=== PATIENT | female | born 1995 | race Caucasian/White ===

== ENCOUNTER → 2017-02-04 | Outpatient (CLI) | payer OTHER | END | disposition home or self-care (01) | LOC: GMA 20:13 | PROVIDERS: ATTEND Nurse Practitioner Family | DX: N30.00 Acute cystitis without hematuria (principal) ==

== ENCOUNTER → 2017-10-15 | Outpatient (CLI) | payer OTHER | LOC: GMAJS 15:49 | PROVIDERS: ATTEND Physician Assistant | DX: Z20.2 Contact with and (suspected) exposure to infections with a predominantly sexual mode of transmission (principal); Z72.51 High risk heterosexual behavior ==

== ENCOUNTER → 2019-02-10 | Outpatient (CLI) | payer OTHER | LOC: GMAM 13:55 | PROVIDERS: ATTEND Family Medicine | DX: R10.2 Pelvic and perineal pain (principal); N39.0 Urinary tract infection, site not specified ==

== ENCOUNTER → 2019-02-12 | Outpatient (CLI) | payer OTHER ==
--- NOTE | 2019-02-12 11:39 | CT ---
EXAM DESCRIPTION: Abdoment/Pelvis w/o Contrast CLINICAL HISTORY: 23 years, Female, PELVIC PN, FEMALE COMPARISON: None. TECHNIQUE: CT of the abdomen and pelvis is performed according to our non contrast protocol. FINDINGS: The lung bases are clear. Liver, spleen, and pancreas are unremarkable. Adrenal glands appear normal. The right kidney is unremarkable. The left kidney is unremarkable. No renal stones or hydronephrosis. Small bowel loops appear normal in caliber with normal wall thickness. There is no lymphadenopathy, inflammation, or free fluid observed. In the pelvis, the appendix is normal. No inflammation around the cecum or terminal ileum or sigmoid colon. No stones in the distal ureters or bladder. Rectal wall thickness is normal for degree of distention. No free fluid or mass in the pelvis. Uterus appears normal. No ovarian enlargement. No inguinal or lower pelvic adenopathy. Coronal and sagittal reformatted images confirm the findings. IMPRESSION: No diagnostic abnormality. This exam was performed according to our departmental dose-optimization program, which includes automated exposure control, adjustment of the mA and/or kV according to patient size and/or use of iterative reconstruction technique. Total DLP equals 251.66 mGycm. Electronically signed by: Shun Ordoñez MD 02/12/2019 11:36 AM CDT
== END ==
LOC: CT 08:02
PROVIDERS: ATTEND Family Medicine
DX: R10.2 Pelvic and perineal pain (principal)

== ENCOUNTER → 2019-02-15 | Outpatient (CLI) | payer OTHER | LOC: GMAM 16:43 | PROVIDERS: ATTEND Family Medicine | DX: R63.4 Abnormal weight loss (principal) ==

== ENCOUNTER → 2019-12-23 | Outpatient (CLI) | payer OTHER | LOC: GMAM 16:30 | PROVIDERS: ATTEND Family Medicine | DX: R53.83 Other fatigue (principal); F34.1 Dysthymic disorder ==

== ENCOUNTER 2020-01-04 00:15 | Emergency (ER) | payer OTHER ==
[2020-01-04] MEDS ORDERED: diphenhydrAMINE HCL 50 MG/ML VIAL IV ONE (00:27)
[2020-01-04] MEDS ORDERED: SODIUM CHLORIDE 0.9% 1000ML 1,000 ML IVS ONE (00:30)
[2020-01-04 00:33] VITALS: TEMP 97.2
--- NOTE | 2020-01-04 00:33 | ED.PDOC ---
History of Present Illness - General Chief Complaint: Allergic Reaction Stated Complaint: muscle stiffness, drooling Time Seen by Provider: 01/04/20 00:21 - History of Present Illness Initial Comments: 24 yo F PMH Anxiety Depression (Denies hallucinations SI HI without suicide plan) presents to the ED Mother at bedside sister also a patient in the ED for migraines presents to the ED c/o 'reaction to psych medication' Describes feeling jittery and having uncontrolled movement of mouth intermittently. Denies fever chills nausea vomiting diarrhea chest pain sob diaphoresis recent travel cough or contact with covid19 no change in diet bowel or bladder symptoms disturb rest. Pt. took melatonin and smoked marijuana tonight. Admits drinking and smoking PMD Viktoriya Ball no other c/o today. Allergies/Adverse Reactions: Allergies NO KNOWN ALLERGY Allergy (Verified 01/04/20 00:25) Home Medications: Ambulatory Orders DiphenhydrAMINE HCL [Benadryl] 50 mg PO BEDTIME 5 Days cap 01/04/20 Review of Systems - Review of Systems Constitutional: States: see HPI EENTM: States: see HPI Respiratory: States: see HPI Cardiology: States: see HPI Gastrointestinal/Abdominal: States: see HPI Genitourinary: States: see HPI Musculoskeletal: States: see HPI Skin: States: see HPI Neurological: States: see HPI Endocrine: States: see HPI All other Systems: Reviewed and Negative Family Medical History - Family History Mother Family History: Unknown Physical Exam - Physical Exam General Appearance: No apparent distress, Other - mild tremulousness Eye Exam: bilateral normal Ears, Nose, Throat: normal ENT inspection Neck: non-tender, full range of motion Respiratory: no respiratory distress Cardiovascular/Chest: regular rate, rhythm Gastrointestinal/Abdominal: non tender, soft Rectal Exam: deferred Back Exam: normal inspection Extremity: normal range of motion, non-tender Neurologic: no motor/sensory deficits, other - normal gait Skin Exam: normal color Progress - Progress Progress: 01/04/20 00:35 A/P-Allergic Reaction-iv bolus benadryl cbc cmp ua uhcg reassess if unremarkable d/c follow up pcp 01/04/20 00:55 On reassessment no jerky movement or facial contortions pt resting calmly asymptomatic will d/c Benadryl qhs follow up pcp PPE worn-N95 surgical mask with attached face shield over N95 goggle gloves and face shield over that 01/04/20 00:58 Laboratory Tests 01/04/20 00:34 Urine HCG, Qual Negative - Results/Orders Results/Orders: EKG-non specific TW changes No STEMI NSR 90bpm Departure - Departure Clinical Impression: Allergic reaction Qualifiers: Encounter type: initial encounter Qualified Code(s): T78.40XA - Allergy, unspecified, initial encounter Time of Disposition: 00:59 Disposition: Discharge to Home or Self Care Condition: Good Departure Forms: ED Discharge - Pt. Copy, Patient Portal Self Enrollment Instructions: Adverse Drug Reactions, Adult (DC) Referrals: Antonio Ball MD [Primary Care Provider] - 1-2 Days Prescriptions: DiphenhydrAMINE HCL [Benadryl] 50 mg PO BEDTIME 5 Days cap Home Medications: Ambulatory Orders DiphenhydrAMINE HCL [Benadryl] 50 mg PO BEDTIME 5 Days cap 01/04/20
[2020-01-04 01:02] VITALS: BP 130/77; O2SAT 99
== END 2020-01-04 01:21 | disposition home or self-care (01) ==
LOC: ER 00:15
DX: F12.10 Cannabis abuse, uncomplicated (principal); F15.10 Other stimulant abuse, uncomplicated; T78.40XA Allergy, unspecified, initial encounter; Y92.9 Unspecified place or not applicable
CPT/HCPCS: 36415; 80053; 80307; 80320; 80329; 81001; 81025; 85025; 87086; 93005; J1200; J7030

== ENCOUNTER 2020-06-25 23:59 | Observation (INO) | payer OTHER ==
[2020-06-26] MEDS ORDERED: SODIUM CHLORIDE 0.9% 1000ML 1,000 ML IVS ONE ×2 (00:33→07:10)
[2020-06-26] MEDS ORDERED: TRANEXAMIC ACID 1,000 MG/10 ML VIAL IV ONE ×2 (01:00→05:14)
[2020-06-26] MEDS ORDERED: CONJUGATED ESTROGENS 25 MG IV ONE ×2 (01:00→05:15)
[2020-06-26] MEDS ORDERED: WATER FOR INJ 10 ML VIAL INJ ONE ×2 (01:16→05:58)
[2020-06-26] MEDS ORDERED: ONDANSETRON ODT 8 MG TAB SL ONE (01:32)
[2020-06-26] MEDS ORDERED: KCL 20 MEQ/NS 1,000 ML IVS ONE ×2 (01:35→01:50)
[2020-06-26] MEDS ORDERED: SODIUM CHLORIDE 0.9% 1000ML 0 ML ONE (01:39)
--- NOTE | 2020-06-26 06:36 | ED.PDOC ---
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 Bleeding is bright red. Estimated blood loss prior to arrival here is probably 150 cc. Has had some irregular periods over the last 6 months since going off control. She had vaginal bleeding 2 weeks ago. Patient admits to doing methamphetamine and marijuana today. She denies any vaginal trauma outside of normal intercourse. No history of any bleeding diatheses. The patient was going to have a blood loss of probably around 1200 to 1400 cc for the day before the bleeding was stopped. Patient was found to not be . Bleeding was obviously intrauterine based on ultrasound. Dr. Benton was contacted who agreed with primary administration IV form as well as the addition of TXA. Speculum exam demonstrated bright red blood coming from the cervical os that was essentially closed. No evidence of laceration of the vaginal genao. No evidence of bleeding from the rectum. No unusual pain with the exam. Timing/Duration: 1/2 hour Severity: severe Improving Factors: nothing Worsening Factors: nothing Associated Symptoms: denies symptoms Allergies/Adverse Reactions: Allergies Aripiprazole [From [employer]] Allergy (Verified 06/26/20 02:34) Home Medications: Ambulatory Orders DiphenhydrAMINE HCL [Benadryl] 50 mg PO BEDTIME 5 Days cap 01/04/20 DiphenhydrAMINE HCL [Benadryl] 50 mg PO BEDTIME 5 Days #5 cap 01/04/20 Estrogens, Conjugated [Premarin] 2.5 mg PO Q6HR #10 day 06/26/20 Review of Systems - Review of Systems Constitutional: States: no symptoms reported EENTM: States: no symptoms reported Respiratory: States: no symptoms reported Cardiology: States: no symptoms reported Gastrointestinal/Abdominal: States: see HPI Genitourinary: States: see HPI Musculoskeletal: States: no symptoms reported Skin: States: no symptoms reported Neurological: States: no symptoms reported Endocrine: States: no symptoms reported All other Systems: No Change from Baseline Past Medical History (General) - Patient Medical History Hx Seizures: No Hx Stroke: No Hx Dementia: No Hx Asthma: No Hx of COPD: No Hx Cardiac Disorders: Yes - abnomral heart rate as child Hx Congestive Heart Failure: No Hx Pacemaker: No Hx Hypertension: No Hx Thyroid Disease: No Hx Diabetes: No - low blood sugars Hx Gastroesophageal Reflux: No Hx Renal Disease: No Hx Cancer: No Hx of HIV: No Hx Hepatitis C: No Hx MRSA: No Surgical History: no surgical history - Vaccination History Hx Tetanus, Diphtheria Vaccination: No Hx Influenza Vaccination: No Hx Pneumococcal Vaccination: No Immunizations Up to Date: No - Social History Hx Tobacco Use: Yes Hx Chewing Tobacco Use: No Hx Alcohol Use: No Hx Substance Use: Yes - admits to meth and marijuana Hx Substance Use Treatment: No Hx Depression: Yes Feels Threatened In Home Enviroment: No Feels Threatened In a Relationship: No Hx Physical Abuse: No Hx Emotional Abuse: No Hx Suspected Abuse: No - Activities of Daily Living Hospice Agency (if applicable):: None - Female History Patient is a Female of Child Bearing Age (10 -59 yrs old): Yes Patient : No - Triage Comment ED Triage Comment: states she had menstral cycle on jun 11, tonight while having sexual intercourse pt had sudden onset of vaginal bleeding and c/o rectal pain Family Medical History - Family History Mother Family History: Unknown Physical Exam - Physical Exam General Appearance: Alert, Anxious, Other - Obvious distress. Eye Exam: bilateral normal Ears, Nose, Throat: hearing grossly normal, normal pharynx Neck: full range of motion, supple Respiratory: lungs clear, normal breath sounds, no respiratory distress, no accessory muscle use Cardiovascular/Chest: normal peripheral pulses, no edema, tachycardia Peripheral Pulses: radial,right: 2+, radial,left: 2+ Gastrointestinal/Abdominal: non tender, soft Rectal Exam: deferred, other - Pelvic exam as above. Back Exam: no CVA tenderness, no vertebral tenderness Extremity: normal range of motion, non-tender, normal inspection, no pedal edema, normal capillary refill Neurologic: activities specialist II-XII nml as tested, alert, oriented x 3, other - Patient is highly anxious that she is still on methamphetamine. Skin Exam: pallor Comments: Vital Signs - 24 hr 06/26/20 06/26/20 06/26/20 00:05 01:00 01:15 Temperature 97.9 F Pulse Rate 107 H 109 H 145 H Pulse Rate [ 107 H 109 H 145 H tele] Respiratory 20 17 24 Rate Blood Pressure 128/85 111/78 100/69 [Left Arm] O2 Sat by Pulse 94 L 100 99 Oximetry 06/26/20 06/26/20 06/26/20 01:30 01:45 02:00 Temperature Pulse Rate Pulse Rate [ 117 H 133 H 130 H tele] Respiratory 21 16 16 Rate Blood Pressure 103/73 100/71 95/78 [Left Arm] O2 Sat by Pulse 99 98 99 Oximetry 06/26/20 06/26/20 06/26/20 02:15 02:30 03:00 Temperature Pulse Rate 107 H 89 107 H Pulse Rate [ 107 H 89 107 H tele] Respiratory 26 H 18 18 Rate Blood Pressure 89/73 97/76 99/69 [Left Arm] O2 Sat by Pulse 99 100 99 Oximetry 06/26/20 06/26/20 06/26/20 03:30 05:00 06:00 Temperature Pulse Rate Pulse Rate [ 88 92 H 88 tele] Respiratory 17 19 Rate Blood Pressure 102/59 101/56 [Left Arm] O2 Sat by Pulse 100 100 100 Oximetry Progress - Progress Progress: 06/26/20 06:39 The patient is a 24-year-old female presents emergency room secondary to acute onset vaginal bleeding that was very brisk. The patient would go on to lose well over a liter of blood before we were able to get it shut down. She did receive a couple of liters of IV fluids here. She took 2 doses of TXA and 2 doses of IV estrogen. She is monitored for around 7 hours. The patient is going to be sent home with a prescription to get Premarin 2.5 mg to take 4 times daily for the next 10 days. She needs to contact Dr. Benton's office as soon as possible to arrange a follow-up to hopefully obtain a definitive ultrasound and further evaluation to prevent such an incident in the future. She has no doubt going to feel weak and tired and somewhat dizzy over the next week. She needs to keep her self hydrated and ambulate carefully. Hemoglobin dropped from 14 down to 10. I would recommend a repeat check in a few days. Laboratory work was otherwise unremarkable. TSH was within normal limits. Coags were essentially normal. She needs to strictly avoid methamphetamine abuse due to its known unpredictable effects on vasculature, including that within the uterus. Additionally the risk of taking estrogen with methamphetamine and smoking have been discussed with the patient. She does understand the risk versus benefits. Strict ER warnings given for any significant worsening. Critical care time spent on this patient for uncontrolled vaginal bleeding is 50 minutes. [phone] 06/26/20 06:47 - Results/Orders Results/Orders: Bedside ultrasound by me shows clots in the uterus. No more significant definitive pathology is found. Ultrasound is very limited. Laboratory Tests 06/26/20 06/26/20 06/26/20 00:38 00:38 00:38 WBC 10.3 RBC 4.52 Hgb 14.8 Hct 41.4 MCV 91.8 MCH 32.7 H MCHC 35.6 RDW 12.5 Plt Count 305 MPV 7.4 Absolute Neuts (auto) 5.60 Absolute Lymphs (auto) 3.60 H Absolute Monos (auto) 0.90 H Absolute Eos (auto) 0.10 Absolute Basos (auto) 0.00 Neutrophils % 54.8 Lymphocytes % 35.2 Monocytes % 8.5 Eosinophils % 1.1 Basophils % 0.4 PT 11.0 H INR 1.11 PTT (SP) 24.5 Sodium 137 Potassium 3.6 Chloride 102 Carbon Dioxide 23 Anion Gap 15.6 BUN 16 Creatinine 0.64 BUN/Creatinine Ratio 25.0 H Random Glucose 118 H Serum Osmolality 276.1 Calcium 9.6 Total Bilirubin 0.8 AST 17 ALT 12 Alkaline Phosphatase 54 Serum Total Protein 7.0 Albumin 4.4 Globulin 2.6 Albumin/Globulin Ratio 1.7 TSH Serum HCG, Qual Urine HCG, Qual Urine Opiates Screen Urine Barbiturates Ur Phencyclidine Scrn U Amphetamin/Meth Scrn U Benzodiazepines Scrn U Cocaine Metab Screen U Cannabinoids Screen Patient ABO/Rh Antibody Screen 06/26/20 06/26/20 06/26/20 00:38 00:50 00:50 WBC RBC Hgb Hct MCV MCH MCHC RDW Plt Count MPV Absolute Neuts (auto) Absolute Lymphs (auto) Absolute Monos (auto) Absolute Eos (auto) Absolute Basos (auto) Neutrophils % Lymphocytes % Monocytes % Eosinophils % Basophils % PT INR PTT (SP) Sodium Potassium Chloride Carbon Dioxide Anion Gap BUN Creatinine BUN/Creatinine Ratio Random Glucose Serum Osmolality Calcium Total Bilirubin AST ALT Alkaline Phosphatase Serum Total Protein Albumin Globulin Albumin/Globulin Ratio TSH Serum HCG, Qual Cancelled Urine HCG, Qual Negative Urine Opiates Screen Negative Urine Barbiturates Negative Ur Phencyclidine Scrn Negative U Amphetamin/Meth Scrn Positive H U Benzodiazepines Scrn Negative U Cocaine Metab Screen Negative U Cannabinoids Screen Positive H Patient ABO/Rh B POSITIVE Antibody Screen Negative 06/26/20 06/26/20 03:47 03:47 WBC RBC Hgb 10.4 L D Hct 29.4 L D MCV MCH MCHC RDW Plt Count MPV Absolute Neuts (auto) Absolute Lymphs (auto) Absolute Monos (auto) Absolute Eos (auto) Absolute Basos (auto) Neutrophils % Lymphocytes % Monocytes % Eosinophils % Basophils % PT INR PTT (SP) Sodium Potassium Chloride Carbon Dioxide Anion Gap BUN Creatinine BUN/Creatinine Ratio Random Glucose Serum Osmolality Calcium Total Bilirubin AST ALT Alkaline Phosphatase Serum Total Protein Albumin Globulin Albumin/Globulin Ratio TSH 0.51 Serum HCG, Qual Urine HCG, Qual Urine Opiates Screen Urine Barbiturates Ur Phencyclidine Scrn U Amphetamin/Meth Scrn U Benzodiazepines Scrn U Cocaine Metab Screen U Cannabinoids Screen Patient ABO/Rh Antibody Screen Departure - Departure Clinical Impression: Vaginal bleeding, Hemorrhage Disposition: Discharge to Home or Self Care Condition: Fair Departure Forms: ED Discharge - Pt. Copy, Patient Portal Self Enrollment Instructions: Bleeding Between Periods Diet: regular diet Activity: increase activity as tolerated Referrals: Antonio Ball MD [Primary Care Provider] - 1-2 Weeks Prescriptions: Estrogens, Conjugated [Premarin] 2.5 mg PO Q6HR #10 day Home Medications: Ambulatory Orders DiphenhydrAMINE HCL [Benadryl] 50 mg PO BEDTIME 5 Days cap 01/04/20 DiphenhydrAMINE HCL [Benadryl] 50 mg PO BEDTIME 5 Days #5 cap 01/04/20 Estrogens, Conjugated [Premarin] 2.5 mg PO Q6HR #10 day 06/26/20 Additional Instructions: The patient is a 24-year-old female presents emergency room secondary to acute onset vaginal bleeding that was very brisk. The patient would go on to lose well over a liter of blood before we were able to get it shut down. She did receive a couple of liters of IV fluids here. She took 2 doses of TXA and 2 doses of IV estrogen. She is monitored for around 7 hours. The patient is going to be sent home with a prescription to get Premarin 2.5 mg to take 4 times daily for the next 10 days. She needs to contact Dr. Benton's office as soon as possible to arrange a follow-up to hopefully obtain a definitive ultrasound and further evaluation to prevent such an incident in the future. She has no doubt going to feel weak and tired and somewhat dizzy over the next week. She needs to keep her self hydrated and ambulate carefully. Hemoglobin dropped from 14 down to 10. I would recommend a repeat check in a few days. Laboratory work was otherwise unremarkable. TSH was within normal limits. Coags were essentially normal. She needs to strictly avoid methamphetamine abuse due to its known unpredictable effects on vasculature, including that within the uterus. No sexual intercourse for the next month as well. Additionally the risk of taking estrogen with methamphetamine and smoking have been discussed with the patient. She does understand the risk versus benefits. Strict ER warnings given for any significant worsening.
--- NOTE | 2020-06-26 07:46 | HP ---
SUPERVISING PHYSICIAN: Prabhu Eisenberg MD CHIEF COMPLAINT: Vaginal bleeding. HISTORY OF PRESENT ILLNESS: This is a 24-year-old female who came to the Emergency Room with abnormal vaginal bleeding. She noted the abrupt onset after intercourse. The bleeding was bright red in color and estimated about 150 cc. The patient states she has had irregular periods over the last 6 months or so since going off control. She denies any vaginal trauma. In the Emergency Room, Dr. Benton was contacted who advised giving tranexamic acid and 2 doses of estrogen. She was going to be discharged with a prescription for Premarin 2.5 mg 4 times a day for the next 10 days with followup with Dr. Benton. However, she did have a dip in her hemoglobin and she felt weak. Her initial hemoglobin was 14.8 and it dropped to 10.4 and subsequently 10.2. It should be noted also she got 2 liters of fluids plus was placed on IV fluids at 250 cc an hour after that. She was admitted for monitoring of her hemoglobin and hematocrit. PAST MEDICAL HISTORY: She denies any past medical history. PAST SURGICAL HISTORY: She denies any surgical history. MEDICATIONS: She denies medications. ALLERGIES: ABILIFY. FAMILY HISTORY: She states she does not have any significant past medical history. SOCIAL HISTORY: The patient has smoked one pack per day since sixth grade and has been doing methamphetamines since the age of 15. She states she does that frequently and the last time she did it was yesterday. She less frequently utilizes marijuana. No significant alcohol abuse. REVIEW OF SYSTEMS: CONSTITUTIONAL: No fever or chills. Positive for fatigue. HEENT: Negative for headaches, throat pain, earaches, nasal congestion, vision changes. RESPIRATORY: Negative for coughing, hemoptysis or pleuritic chest pain. CARDIOVASCULAR: Negative for chest pain, palpitations or peripheral edema. GASTROINTESTINAL: Negative for nausea, vomiting, diarrhea, constipation or abdominal pain. GENITOURINARY: Positive for vaginal bleeding. Negative for dysuria, frequency or flank pain. MUSCULOSKELETAL: No joint pain, joint swelling or muscle cramps. ENDOCRINE: No polydipsia, polyuria or polyphagia. No heat or cold intolerance. NEUROLOGIC: No syncope, paresthesias or seizures. HEMATOLOGIC: No easy bruising and no transfusion reaction. PHYSICAL EXAMINATION: VITAL SIGNS: Blood pressure 93/55, heart rate 89, respiratory rate 15, temperature 98.5, oxygen saturation 100%. GENERAL: Ms. Boateng is a 24-year-old female in no active distress. NEUROLOGIC: The patient is alert and oriented. LUNGS: Clear to auscultation bilaterally. CARDIOVASCULAR: Regular rate and rhythm. Normal S1, S2. ABDOMEN: Soft. Positive bowel sounds. GENITOURINARY: Deferred. EXTREMITIES: Lower extremities with no edema. IMPRESSION: 1. Abnormal vaginal bleeding. 2. Methamphetamine abuse. 3. Nicotine dependency. 4. History of depression with anxiety. PLAN: The patient will be admitted for serial hemoglobin and hematocrits. If the hemoglobin drops precipitously, we will transfused packed red blood cells. It should be noted also the patient has had several liters of fluids, so there is concern for hemodilution. Additionally, we will monitor her for anymore vaginal bleeding and speak with Dr. Benton if there is any significant increase. Additionally, we will resume the Premarin she was ordered. #[id number] MTDD
[2020-06-26] MEDS ORDERED: SODIUM CHLORIDE 0.9% (FLUSH) 10 ML SYG IV PRN (09:24)
[2020-06-26] MEDS ORDERED: SODIUM CHLORIDE 0.9% 1000ML 1,000 ML IVS PRN (09:24)
[2020-06-26] MEDS ORDERED: IV SET AND CAP CHANGE INJ INJ SCH (09:30)
[2020-06-26] MEDS ORDERED: SODIUM CHLORIDE 0.9% 250ML 250 ML ONE (12:24)
[2020-06-26] MEDS ORDERED: SODIUM CHLORIDE 0.9% 250ML 250 ML IVS PRN (13:56)
--- NOTE | 2020-06-27 09:56 | DS ---
SUPERVISING PHYSICIAN: Prabhu Eisenberg MD ADMISSION DIAGNOSIS: 1. Abnormal vaginal bleeding. 2. Methamphetamine abuse. 3. Nicotine dependency. 4. History of depression with anxiety. DISCHARGE DIAGNOSIS: 1. Abnormal vaginal bleeding. 2. Methamphetamine abuse. 3. Nicotine dependency. 4. History of depression with anxiety. HOSPITAL COURSE: This is a 24-year-old female who came to the Emergency Room with abnormal vaginal bleeding. She had abrupt onset after intercourse and noted about 150 cc estimated blood loss at that time. She came to the ER. She continued to have profuse bleeding. She was given tranexamic acid and two doses of estrogen as well. The bleeding pretty much stopped. She had also been given 2 liters of crystalloids. She was placed on 250 cc after that. She was admitted for observation and serial H&H checks. She did have a hemoglobin that went from 14 to 10 and then subsequently dropped to 8.7. At that point, she as given 1 unit of blood and more serial H&Hs were done. Hemoglobin went from 8.7 to 9.7. Subsequent checks after that were 9.3, 10.7 and 10.1. She did have a pad that did not show any acute bleeding any longer. Vital signs remained stable. Therefore, today she will be discharged in stable condition to followup with Dr. Benton. She is instructed to call for a followup appointment in addition to fact Premarin 2.5 mg q.6h. has been ordered and already sent to [facility], [place]. She has been instructed to reduce physical activity, no intercourse for 1 month and she will have diet as tolerated. [facility][id number] [facility]
[2020-06-27 10:16] VITALS: BP 108/69; TEMP 98.7; O2SAT 100
== END 2020-06-27 09:00 | disposition home or self-care (01) ==
LOC: ER 23:59 → MS 06-26 07:45
PROVIDERS: ADMIT Nurse Practitioner; ATTEND Nurse Practitioner
DX: N93.0 Postcoital and contact bleeding (principal); N92.6 Irregular menstruation, unspecified; F15.10 Other stimulant abuse, uncomplicated; R00.0 Tachycardia, unspecified; R42 Dizziness and giddiness; R55 Syncope and collapse; F17.210 Nicotine dependence, cigarettes, uncomplicated; F41.8 Other specified anxiety disorders; Z88.8 Allergy status to other drugs, medicaments and biological substances
CPT/HCPCS: 96366; 96365; 96375; 96376; J2060 ×2; J7030; J7050; A4216 ×2; J1410 ×2; J3480; 80053; 80307; 85014 ×7; 85018 ×7; 81025; 36415 ×5; 85025; 85730; 85610; 84443; 36416; P9016; 86922; 86900; 86901; 86850; 36430; 99285; G0378

== ENCOUNTER → 2020-08-07 | Outpatient (CLI) | payer OTHER | LOC: GMALS 15:24 | PROVIDERS: ATTEND Nurse Practitioner Acute Care | DX: Z20.2 Contact with and (suspected) exposure to infections with a predominantly sexual mode of transmission (principal) ==